=== PATIENT | female | born 1990 | race Hispanic/Latino ===

== ENCOUNTER 2023-12-18 06:00 | Day surgery (SDC) | payer OTHER ==
[2023-12-15 10:53] LABS: BASOPHILS # (AUTO) 0.06 K/uL (0.00-0.20); EOSINOPHILS # (AUTO) 0.28 K/uL (0.00-0.70); EOSINOPHILS % (AUTO) 4.6 % (0.0-8.0); HEMATOCRIT 44.9 % (36-48); IMMATURE GRANULOCYTE ABSOLUTE 0.02 K/uL (0-1); LYMPHOCYTES % (AUTO) 33.1 % (21.0-51.0); MEAN CORPUSCULAR HEMOGLOBIN 28.8 pg (27.0-33.0); MEAN CORPUSCULAR VOLUME 87.5 fL (79-99); MONOCYTES # (AUTO) 0.4 K/uL (0.1-1.0); MONOCYTES % (AUTO) 6.4 % (3.0-13.0); NEUTROPHILS # (AUTO) 3.3 K/uL (1.8-7.7); NEUTROPHILS % (AUTO) 54.6 % (40.0-77.0); PLATELET COUNT (AUTO) 259 K/uL (130-400); RED BLOOD CELL COUNT(AUTO) 5.13 MIL/uL (4.00-5.50); RED CELL DISTRIBUTION WIDTH 12.1 % (11.0-15.5); WHITE BLOOD COUNT (AUTO) 6.1 K/uL (4.8-10.8)
[2023-12-15 10:54] VITALS: BP 125/77; PULSE 78; RESP 18
[~2023-12-18] VITALS: Ht 152.4 cm; Wt 89.7 kg
[2023-12-18] VITALS (17 sets, daily range): BP systolic 103–138; BP diastolic 59–95; PULSE 60–96; RESP 15–18
[2023-12-18] MEDS ORDERED: CEFAZOLIN SODIUM 2 GM VIAL ONE (06:34)
[2023-12-18 06:35] LABS: CREATININE 0.7 mg/dL (0.5-1.0)
[2023-12-18] MEDS ORDERED: FAMOTIDINE 20MG VIAL IV ONE (06:59)
[2023-12-18] MEDS ORDERED: ACETAMINOPHEN 1,000 MG/100 ML VIAL IV ONE (06:59)
[2023-12-18] MEDS ORDERED: PROPOFOL 10 MG/ML 20ML VIAL IV ONE (07:04)
[2023-12-18] MEDS ORDERED: ROCURONIUM BROMIDE 10MG/1ML 5ML VL ONE (07:04)
[2023-12-18] MEDS ORDERED: LIDOCAINE PF 100MG/5ML (2%) SYRINGE 5ML ONE (07:04)
[2023-12-18] MEDS ORDERED: FENTANYL CITRATE PF 50 MCG/1 ML 2ML VIAL ONE (07:05)
[2023-12-18] MEDS: LACTATED RINGERS 1000ML 1,000 ML IV ONE (07:17)
[2023-12-18] MEDS ORDERED: DEXAMETHASONE SOD PHOSPHATE 10MG/ML 1ML VIAL ONE (07:35)
[2023-12-18] MEDS ORDERED: ONDANSETRON 4MG INJ ONE (07:36)
[2023-12-18] MEDS ORDERED: KETOROLAC 30MG VIAL (30MG/ML) ONE (07:58)
[2023-12-18] MEDS ORDERED: NEOSTIGMINE METHYLSULFATE 1MG/ML IV ONE (08:06)
[2023-12-18] MEDS ORDERED: GLYCOPYRROLATE 0.2 MG/ML 5 ML VIAL ONE (08:06)
[2023-12-18] MEDS: MEPERIDINE-PF 25 MG/ML SYG ONE ×2 (08:59→09:07)
== END 2023-12-18 10:30 | disposition home or self-care (01) ==
LOC: DAH 06:00
PROVIDERS: ATTEND Obstetrics & Gynecology
DX: Z30.2 Encounter for sterilization (principal); N92.1 Excessive and frequent menstruation with irregular cycle; N83.01 Follicular cyst of right ovary; F41.9 Anxiety disorder, unspecified
CPT/HCPCS: 84703; 85025; 86850 ×2; 86900 ×2; 86901 ×2; 36415 ×2; 58670; 58563; 80048; 88305; A6260; A4663; J7030; A4351; A4215 ×2; J7120; J3490 ×3; J3010; J1100; J2001; J2704; J2405; J1885; J2710; J2175 ×2; J0690; C1769; A4649; A4223; A4222; A4221

== ENCOUNTER 2024-10-16 10:37 | Emergency (ER) | payer OTHER ==
[~2024-10-16] VITALS: Ht 152.4 cm; Wt 67.1 kg
--- NOTE | 2024-10-16 12:26 | ERN ---
ED Note History of Present Illness Stated Complaint: EAR PAIN Chief Complaint: Earache Time Seen by MD: 10:47 Dictation: 34-year-old female presents to the ED for evaluation of left ear pain onset four days ago. Patient denies any fever, chills, cough or any other associated symptoms at this time. Patient states that she got [id number] ear drops yesterday and they believes made her pain worse. Allergies: Coded Allergies: No Known Drug Allergies (Unverified Allergy, Unknown, 12/15/23) Home Meds No Active Prescriptions or Reported Meds Past Medical History Past Medical History: No Pertinent History Surgical History: None Review of System Dictation Constitutional: Negative for fever,chills, and weight loss Eyes: Negative for injury, pain,redness, and discharge ENT: Positive for left ear pain Negative for injury or swelling Cardiovascular: Negative for chest pain, palpitations, and edema Respiratory: Negative for shortness of breath, cough, and wheezing, Abdomen/GI: Negative for abdominal pain, nausea, vomiting, diarrhea, and constipation Back: Negative for injury and pain : Negative for injury, bleeding and discharge MS/Extremity: Negative for injury and deformity Skin: Negative for rash, and discoloration Neuro: Negative for headache, weakness, numbness, tingling, and seizure Psych: Negative for suicide ideation, homicidal ideation, and hallucinations Initial Vital Sign VS Vital Signs Date Time Temp Pulse Resp B/P (MAP) Pulse Ox O2 Delivery O2 Flow Rate FiO2 10/16/24 10:37 97.7 85 14 138/83 100 Room Air 0 Physical Exam Dictation General: awake, alert, NAD Head/Face: Normocephalic, atraumatic Eyes: PERRL, EOMI, vision at baseline ENT: oral cavity clear, left cerumen impaction Neck: Trachea midline, supple, no nuchal rigidity Cardiovascular: RRR, normal S1/S2, No MRGs, no JVD Respiratory: CTAB, no respiratory distress, No rales or wheezes Abdomen: Soft, non-tender, non-distended, normal bowel sounds, no guarding or rebound. Skin: Warm, dry, normal turgor, no rash MS/Extremity: Pulses equal, no cyanosis, neurovascular intact, FROM Neuro: COAx4, GCS 15, strength 5/5, CN 2-12 intact, normal cerebellar exam, normal gait, Psych: Normal behavior, mood, and affect normal ED Course ED Course Vital Signs Date Time Temp Pulse Resp B/P (MAP) Pulse Ox O2 Delivery O2 Flow Rate FiO2 10/16/24 10:37 97.7 85 14 138/83 100 Room Air 0 Medical Decision Making MDM MDM: Differential diagnosis: OM, left cerumen impaction Risk of complication and/or morbidity or mortality of patient management: None Medications-Per medication reconciliation Need for hospitalization: Patient does not meet criteria for hospitalization. Need for emergency major/minor surgery: No There are no social concerns with this patient. Prescription drug management Prescriptions will include symptomatic care I independently interpreted the test that were performed, results were reviewed by me and considered findings on radiology if ordered. DX & DISP Disposition: Discharge Departure Impression: Primary Impression: Left ear impacted cerumen Condition: Stable Scripts No Active Prescriptions or Reported Meds Referrals: MONA CAMARGO MD (PCP) HAZEL RUEDA MD October 16, 2024 12:26
[2024-10-16 12:39] VITALS: BP 117/70; PULSE 70; RESP 17; TEMP 98.1; O2SAT 98
== END 2024-10-16 12:49 | disposition home or self-care (01) ==
LOC: EDH 10:37
DX: H61.22 Impacted cerumen, left ear (principal)
CPT/HCPCS: 99281